=== PATIENT | female | born 1965 | race Caucasian/White ===

== ENCOUNTER 2017-07-10 13:07 | Day surgery (SDC) | payer OTHER ==
[~2017-07-10] VITALS: Ht 167.6 cm; Wt 71.2 kg
[~2017-07-10 13:07] MED LIST: ADDERALL XR 3030 MG PO; CENTRUM SILV1 TABLET PO; FLOVENT DISKUS1 DIS2 IH; MOBIC15 MG PO; ROBAXIN500 MG PO
== END 2017-07-10 15:31 | disposition home or self-care (01) ==
LOC: PAIN 13:07 → SDC 14:00 → PAIN 15:31
DX: M47.812 Spondylosis without myelopathy or radiculopathy, cervical region (principal); M54.2 Cervicalgia; G89.29 Other chronic pain; M50.90 Cervical disc disorder, unspecified, unspecified cervical region; F41.8 Other specified anxiety disorders; K21.9 Gastro-esophageal reflux disease without esophagitis; E66.3 Overweight; Z68.25 Body mass index [BMI] 25.0-25.9, adult
CPT/HCPCS: J1030; J2250; J3010; S0020

== ENCOUNTER 2017-07-17 09:41 | Day surgery (SDC) | payer OTHER ==
[~2017-07-17] VITALS: Ht 167.6 cm; Wt 71.2 kg
[2017-07-17] MEDS ORDERED: ADDERALL20 MG PO (09:53)
== END 2017-07-17 11:18 | disposition home or self-care (01) ==
LOC: PAIN 09:41 → SDC 10:00 → PAIN 11:18
DX: M47.812 Spondylosis without myelopathy or radiculopathy, cervical region (principal); M54.2 Cervicalgia; G89.29 Other chronic pain; M50.20 Other cervical disc displacement, unspecified cervical region; K21.9 Gastro-esophageal reflux disease without esophagitis
CPT/HCPCS: J1030; J2250; J3010; S0020

== ENCOUNTER 2017-08-15 11:09 | Day surgery (SDC) | payer OTHER ==
[~2017-08-15] VITALS: Ht 167.6 cm; Wt 72.1 kg
[~2017-08-15 11:09] MED LIST changes: +ADDERALL20 MG PO; +ZOLOFT25 MG PO
== END 2017-08-15 13:28 | disposition home or self-care (01) ==
LOC: PAIN 11:09 → SDC 14:30 → PAIN 14:30
PROC: 3E0T3TZ Introduction of Destructive Agent into Peripheral Nerves and Plexi, Percutaneous Approach (ICD-10-PCS; principal; 2017-08-15)
PROC: BR141ZZ Fluoroscopy of Cervical Facet Joint(s) using Low Osmolar Contrast (ICD-10-PCS; principal; 2017-08-15)
DX: M47.812 Spondylosis without myelopathy or radiculopathy, cervical region (principal); M54.2 Cervicalgia; G89.29 Other chronic pain; M50.90 Cervical disc disorder, unspecified, unspecified cervical region; K21.9 Gastro-esophageal reflux disease without esophagitis; F41.8 Other specified anxiety disorders
CPT/HCPCS: J1030; J2250; J3010; S0020